=== PATIENT | female | born 1980 | race Caucasian/White ===

== ENCOUNTER → 2017-09-15 | Outpatient (CLI) | payer OTHER ==
[2017-09-15 08:53] LABS: PROGESTERONE 0.2 NG/ML
[2017-09-15 08:53] LABS: LUTEINIZING HORMONE 8.6 mIU/mL
[2017-09-15 08:54] LABS: ESTRADIOL 104.3 PG/ML
== END ==
LOC: M LAB 07:40
DX: N97.9 Female infertility, unspecified (principal)

== ENCOUNTER → 2017-09-15 | Outpatient (CLI) | payer OTHER | LOC: M RAD 16:22 | DX: N97.9 Female infertility, unspecified (principal) ==

== ENCOUNTER → 2017-09-17 | Outpatient (CLI) | payer OTHER ==
[2017-09-17 10:00] LABS: PROGESTERONE 0.3 NG/ML
[2017-09-17 10:01] LABS: ESTRADIOL 211.4 PG/ML; LUTEINIZING HORMONE 9.7 mIU/mL
== END ==
LOC: M RAD 07:04
DX: N97.9 Female infertility, unspecified (principal)

== ENCOUNTER → 2017-09-27 | Outpatient (CLI) | payer OTHER ==
[2017-09-27 11:05] LABS: PROGESTERONE 23.6 NG/ML
[2017-09-27 11:07] LABS: ESTRADIOL 137.6 PG/ML
== END ==
LOC: M LAB 07:33
DX: N97.9 Female infertility, unspecified (principal)

== ENCOUNTER → 2017-10-04 | Outpatient (CLI) | payer OTHER ==
[2017-10-04 09:24] LABS: HCG, SERUM QUANTITATIVE < 1.0 MIU/ML
== END ==
LOC: M LAB 08:32
DX: Z32.00 Encounter for pregnancy test, result unknown (principal)
CPT/HCPCS: 84702

== ENCOUNTER 2017-11-28 23:54 | Inpatient (IN) | payer OTHER ==
[2017-11-29] MEDS: NS 1,000 ML IV ×2 (00:15→01:45)
[2017-11-29] MEDS: ONDANSETRON 4MG/2ML VIAL (J2405) IV ×4 (00:15→14:18)
[2017-11-29 00:57] LABS: BASO % 0.3 % (0.0-1.0); EOS # 0.1 10^3/uL (0.0-0.50); EOS % 0.8 % (0.0-3.0); HEMATOCRIT 37.6 % (36.0-47.0); HEMOGLOBIN 13.1 g/dl (12.0-15.5); IMMATURE GRANULOCYTE % 0.3 % (0-3.0); LYMPH # 0.7 10^3/uL (1.5-4.5); MEAN CORPUSCULAR HEMOGLOBIN 30.2 pg (27.0-33.0); MEAN CORPUSCULAR HGB CONC 34.8 g/dl (32.0-36.5); MEAN CORPUSCULAR VOLUME 86.6 fl (80.0-96.0); MONO # 0.7 10^3/uL (0.0-0.8); MONO % 5.9 % (0.0-5.0); NEUTROPHILS # 9.6 10^3/uL (1.8-7.7); NEUTROPHILS % 86.7 % (36.0-66.0); PLATELET COUNT, AUTOMATED 297 10^3/uL (150-450); RED BLOOD COUNT 4.34 10^6/uL (4.00-5.40); RED CELL DISTRIBUTION WIDTH 12.4 % (11.5-14.5); WHITE BLOOD COUNT 11.1 10^3/uL (4.0-10.0)
[2017-11-29 01:04] LABS: ALBUMIN 3.4 GM/DL (3.2-5.2); ALBUMIN/GLOBULIN RATIO 0.97 (1.00-1.93); ALKALINE PHOSPHATASE 47 U/L (45-117); ALT/SGPT 41 U/L (12-78); ANION GAP 10 MEQ/L (8-16); AST/SGOT 22 U/L (7-37); BILIRUBIN,DIRECT 0.1 MG/DL (0.0-0.2); BILIRUBIN,TOTAL 0.3 MG/DL (0.2-1.0); BLOOD UREA NITROGEN 10 MG/DL (7-18); CALCIUM LEVEL 8.7 MG/DL (8.5-10.1); CARBON DIOXIDE LEVEL 24 MEQ/L (21-32); CHLORIDE LEVEL 104 MEQ/L (98-107); CREATININE FOR GFR 0.66 MG/DL (0.55-1.30); GLOMERULAR FILTRATION RATE > 60.0 (>60); GLUCOSE, FASTING 98 MG/DL (70-100); HCG, SERUM QUANTITATIVE 111019 MIU/ML; LIPASE 927 U/L (73-393); POTASSIUM SERUM 3.7 MEQ/L (3.5-5.1); SODIUM LEVEL 138 MEQ/L (136-145); TOTAL PROTEIN 6.9 GM/DL (6.4-8.2)
[2017-11-29] MEDS: LR 1,000 ML IV (02:39)
[2017-11-29 07:01] LABS: HEMATOCRIT 33.2 % (36.0-47.0); HEMOGLOBIN 11.5 g/dl (12.0-15.5); MEAN CORPUSCULAR HEMOGLOBIN 30.2 pg (27.0-33.0); MEAN CORPUSCULAR HGB CONC 34.6 g/dl (32.0-36.5); MEAN CORPUSCULAR VOLUME 87.1 fl (80.0-96.0); PLATELET COUNT, AUTOMATED 219 10^3/uL (150-450); RED BLOOD COUNT 3.81 10^6/uL (4.00-5.40); RED CELL DISTRIBUTION WIDTH 12.5 % (11.5-14.5)
[2017-11-29 07:26] LABS: AMYLASE 86 U/L (25-115)
[2017-11-29 07:26] LABS: LIPASE 245 U/L (73-393)
[2017-11-29 07:33] LABS: ALBUMIN 2.8 GM/DL (3.2-5.2); ALBUMIN/GLOBULIN RATIO 0.88 (1.00-1.93); ALKALINE PHOSPHATASE 40 U/L (45-117); ALT/SGPT 33 U/L (12-78); ANION GAP 8 MEQ/L (8-16); AST/SGOT 17 U/L (7-37); BILIRUBIN,TOTAL 0.3 MG/DL (0.2-1.0); BLOOD UREA NITROGEN 10 MG/DL (7-18); CALCIUM LEVEL 7.5 MG/DL (8.5-10.1); CARBON DIOXIDE LEVEL 22 MEQ/L (21-32); CHLORIDE LEVEL 109 MEQ/L (98-107); CREATININE FOR GFR 0.58 MG/DL (0.55-1.30); GLOMERULAR FILTRATION RATE > 60.0 (>60); GLUCOSE, FASTING 97 MG/DL (70-100); POTASSIUM SERUM 3.3 MEQ/L (3.5-5.1); SODIUM LEVEL 139 MEQ/L (136-145)
[2017-11-29] MEDS: KCL 20MEQ IN D5/0.45NS 1000ML 1,000 ML IV (10:56)
== END 2017-11-29 18:45 | disposition home or self-care (01) | DRG 566 ==
LOC: M ED 23:54 → M PED 11-29 02:39 → M ED INP 11-29 02:39 → M PED 11-29 03:30
DX: O21.8 Other vomiting complicating pregnancy (principal); K85.90 Acute pancreatitis without necrosis or infection, unspecified; O34.211 Maternal care for low transverse scar from previous cesarean delivery; O99.611 Diseases of the digestive system complicating pregnancy, first trimester; Z3A.08 8 weeks gestation of pregnancy

== ENCOUNTER → 2017-12-14 | Outpatient (CLI) | payer OTHER | LOC: M LAB 13:12 | DX: O09.521 Supervision of elderly multigravida, first trimester (principal) ==

== ENCOUNTER → 2017-12-14 | Outpatient (CLI) | payer OTHER ==
[2017-12-14 18:31] LABS: BASO % 0.3 % (0.0-1.0); EOS % 0.6 % (0.0-3.0); HEMATOCRIT 36.3 % (36.0-47.0); HEMOGLOBIN 12.5 g/dl (12.0-15.5); IMMATURE GRANULOCYTE % 0.1 % (0-3.0); LYMPH # 1.6 10^3/uL (1.5-4.5); LYMPH % 23.2 % (24.0-44.0); MEAN CORPUSCULAR HGB CONC 34.4 g/dl (32.0-36.5); MEAN CORPUSCULAR VOLUME 87.3 fl (80.0-96.0); MONO # 0.7 10^3/uL (0.0-0.8); MONO % 9.7 % (0.0-5.0); NEUTROPHILS # 4.7 10^3/uL (1.8-7.7); NEUTROPHILS % 66.1 % (36.0-66.0); PLATELET COUNT, AUTOMATED 306 10^3/uL (150-450); RED BLOOD COUNT 4.16 10^6/uL (4.00-5.40); RED CELL DISTRIBUTION WIDTH 12.3 % (11.5-14.5)
[2017-12-14 20:09] LABS: CHLAMYDIA DNA AMPLIFICATION NEGATIVE (NEGATIVE); GC DNA AMPLIFICATION NEGATIVE (NEGATIVE)
[2017-12-15 09:33] LABS: RUBELLA IgG QUALITATIVE IMMUNE (IMMUNE)
[2017-12-15 09:42] LABS: HBsAg Prenatal NEGATIVE (NEGATIVE)
[2017-12-15 10:03] LABS: HIV 1&2 SCREEN CENTAUR NEGATIVE (NEGATIVE)
== END ==
LOC: M SMT 15:16
DX: Z34.81 Encounter for supervision of other normal pregnancy, first trimester (principal); Z3A.10 10 weeks gestation of pregnancy
CPT/HCPCS: 86762

== ENCOUNTER → 2018-03-29 | Outpatient (CLI) | payer OTHER ==
[2018-03-29 13:01] LABS: HEMATOCRIT 33.2 % (36.0-47.0); HEMOGLOBIN 11.4 g/dl (12.0-15.5); MEAN CORPUSCULAR HEMOGLOBIN 30.9 pg (27.0-33.0); MEAN CORPUSCULAR HGB CONC 34.3 g/dl (32.0-36.5); PLATELET COUNT, AUTOMATED 294 10^3/uL (150-450); RED BLOOD COUNT 3.69 10^6/uL (4.00-5.40); RED CELL DISTRIBUTION WIDTH 12.9 % (11.5-14.5); WHITE BLOOD COUNT 7.9 10^3/uL (4.0-10.0)
[2018-03-29 13:32] LABS: GLUCOSE CHALLENGE TEST 1 HOUR 132 MG/DL (LESS THAN 140)
== END ==
LOC: M SMT 09:27
DX: Z34.82 Encounter for supervision of other normal pregnancy, second trimester (principal)

== ENCOUNTER → 2018-06-09 | Outpatient (REF) | payer OTHER | LOC: M LAB REF 17:16 | DX: Z34.83 Encounter for supervision of other normal pregnancy, third trimester (principal); Z36.85 Encounter for antenatal screening for Streptococcus B ==

== ENCOUNTER 2018-07-01 16:45 | Outpatient (CLI) | payer OTHER | END 2018-07-01 17:33 | disposition home or self-care (01) | LOC: M LDO 16:45 | DX: O36.8130 Decreased fetal movements, third trimester, not applicable or unspecified (principal); O47.1 False labor at or after 37 completed weeks of gestation; Z3A.38 38 weeks gestation of pregnancy | CPT/HCPCS: 59025 ==

== ENCOUNTER 2018-07-04 05:36 | Inpatient (IN) | payer OTHER ==
[2018-07-04] MEDS: LR 800 ML IV (06:00)
[2018-07-04 06:37] LABS: MEAN CORPUSCULAR HEMOGLOBIN 28.5 pg (27.0-33.0); MEAN CORPUSCULAR HGB CONC 32.4 g/dl (32.0-36.5); MEAN CORPUSCULAR VOLUME 87.9 fl (80.0-96.0); PLATELET COUNT, AUTOMATED 363 10^3/uL (150-450); RED BLOOD COUNT 4.21 10^6/uL (4.00-5.40); RED CELL DISTRIBUTION WIDTH 13.9 % (11.5-14.5); WHITE BLOOD COUNT 10.6 10^3/uL (4.0-10.0)
[2018-07-04] MEDS ORDERED: LR 1,000 ML IV (07:00)
[2018-07-04] MEDS ORDERED: KETOROLAC 60 MG/2 ML VIAL (J1885) As Ordered (07:21)
[2018-07-04] MEDS ORDERED: OXYTOCIN INJ 10 UNITS/ML VIAL (J2590) As Ordered (07:21)
[2018-07-04] MEDS ORDERED: ONDANSETRON 4MG/2ML VIAL (J2405) As Ordered (07:21)
[2018-07-04] MEDS ORDERED: dexameTHASONE 4 MG/ML 1ML VIAL (J1100) As Ordered (07:21)
[2018-07-04] MEDS: BICITRA 30ML SOLN UDC PO (07:23)
[2018-07-04] MEDS ORDERED: MORPHINE PRES-FREE INJ 10 MG/10 ML VIAL (J2274) As Ordered (07:24)
[2018-07-04] MEDS ORDERED: fentaNYL 100 MCG/2 ML INJECTION (J3010) As Ordered (07:24)
[2018-07-04] MEDS ORDERED: NALOXONE INJ 0.4 MG/1 ML VIAL (J2310) IV ×2 (07:33)
[2018-07-04] MEDS ORDERED: ONDANSETRON 4MG/2ML VIAL (J2405) IV ×3 (07:33→09:00)
[2018-07-04] MEDS ORDERED: NALBUPHINE HCL 10 MG/ML AMP (J2300) IV (07:33)
[2018-07-04] MEDS ORDERED: METOCLOPRAMIDE INJ 10MG/2ML VIAL (J2765) IV (07:33)
[2018-07-04] MEDS ORDERED: ePHEDrine SULFATE 25 MG/5 ML(5MG/ML) SYRINGE As Ordered (08:10)
[2018-07-04] MEDS ORDERED: PHENYLephrine HCL 500 MCG/5 ML (100MCG/ML) SYRINGE (J2370) As Ordered (08:10)
[2018-07-04] MEDS ORDERED: RHOGAM 300 MCG (1500 IU) INJ (J2790) IM (08:45)
[2018-07-04] MEDS ORDERED: MEASLES,MUMPS,RUBELLA VACCINE INJ (MMR-II) (90707) SC (08:45)
[2018-07-04] MEDS ORDERED: OXYTOCIN 30 UNITS IN 0.9% NaCl 500ML IV BAG (J2590) As Ordered (08:59)
[2018-07-04] MEDS: LR 1,000 ML IV ×2 (09:00→10:45)
[2018-07-04] MEDS ORDERED: PERCOCET 5MG/325MG TAB PO (09:00)
[2018-07-04] MEDS ORDERED: fentaNYL 100 MCG/2 ML INJECTION (J3010) IV (09:00)
[2018-07-04] MEDS: OXYTOCIN DRIP 30 UNITS in APPROPRIATE DILUENT 1 EA IV (09:02)
[2018-07-04] MEDS: PRENATAL VITAMINS CHEWABLE TABLET PO (10:42)
[2018-07-04 10:54] LABS: HBSAG L&D NEGATIVE (NEGATIVE)
[2018-07-04] MEDS: KETOROLAC 30 MG/ML VIAL (J1885) IV ×2 (14:40→21:00)
[2018-07-05] MEDS: KETOROLAC 30 MG/ML VIAL (J1885) IV (02:43)
[2018-07-05 07:06] LABS: HEMOGLOBIN 11.3 g/dl (12.0-15.5); MEAN CORPUSCULAR HEMOGLOBIN 28.9 pg (27.0-33.0); MEAN CORPUSCULAR HGB CONC 33.2 g/dl (32.0-36.5); PLATELET COUNT, AUTOMATED 351 10^3/uL (150-450); RED BLOOD COUNT 3.91 10^6/uL (4.00-5.40); WHITE BLOOD COUNT 15.8 10^3/uL (4.0-10.0)
[2018-07-05] MEDS: PRENATAL VITAMINS CHEWABLE TABLET PO (09:21)
[2018-07-05] MEDS: IBUPROFEN 800 MG TAB PO ×2 (09:22→18:17)
[2018-07-05] MEDS: PERCOCET 5MG/325MG TAB PO ×3 (12:37→20:43)
[2018-07-05] MEDS: DOCUSATE SODIUM 100 MG CAP PO (20:43)
[2018-07-06] MEDS: IBUPROFEN 800 MG TAB PO ×2 (02:16→09:50)
[2018-07-06] MEDS: PERCOCET 5MG/325MG TAB PO ×2 (05:14→10:54)
[2018-07-06] MEDS: PRENATAL VITAMINS CHEWABLE TABLET PO (09:50)
== END 2018-07-06 12:20 | disposition home or self-care (01) | DRG 540 ==
LOC: M LDI 05:36 → M OBS 10:05
PROVIDERS: Specialist
PROC: 10D00Z1 Extraction of Products of Conception, Low, Open Approach (ICD-10-PCS; principal; 2018-07-04 07:26)
DX: O34.211 Maternal care for low transverse scar from previous cesarean delivery (principal); Z37.0 Single live birth; Z3A.39 39 weeks gestation of pregnancy

== ENCOUNTER → 2018-10-05 | Outpatient (REF) | payer BC ==
[~2018-10-05] MED LIST: BENA25CA4 PO; IBUP-1114 PO; METO10TA2 PO; OXYC1TAB23 PO; PREN1TAB26 PO; RANI15TA PO; TYLE325T5 PO; TYLE500T78 PO; VALA500T5 PO; ZOFR4TAB14 PO
[2018-10-08 14:38] LABS: HPV LOW VOL RFLX Negative (Negative)
== END ==
LOC: M LAB REF 17:26
PROVIDERS: ATTEND Specialist
DX: Z12.4 Encounter for screening for malignant neoplasm of cervix (principal); Z11.51 Encounter for screening for human papillomavirus (HPV)
CPT/HCPCS: 87624; G0123

== ENCOUNTER 2018-12-27 16:48 | Emergency (ER) | payer OTHER, BC ==
[~2018-12-27] VITALS: Ht 180.3 cm; Wt 75.0 kg
[2018-12-27 16:48] VITALS: BP 119/88
[2018-12-27] MEDS ORDERED: EXPOSURE KIT-ADULT 7 DAY SUPPLY PO ONE (17:15)
[2018-12-27] MEDS ORDERED: RALT40TA PO (17:17)
[2018-12-27] MEDS ORDERED: TRUVTAB PO (17:17)
[2018-12-27 17:20] LABS: BASO % 0.3 % (0.0-1.0); EOS % 0.3 % (0.0-3.0); HEMATOCRIT 39.8 % (36.0-47.0); HEMOGLOBIN 13.3 g/dl (12.0-15.5); LYMPH # 1.5 10^3/uL (1.5-4.5); MEAN CORPUSCULAR HGB CONC 33.4 g/dl (32.0-36.5); MEAN CORPUSCULAR VOLUME 89.8 fl (80.0-96.0); MONO # 0.5 10^3/uL (0.0-0.8); MONO % 9.1 % (0.0-5.0); NEUTROPHILS # 3.8 10^3/uL (1.8-7.7); NEUTROPHILS % 65.1 % (36.0-66.0); PLATELET COUNT, AUTOMATED 300 10^3/uL (150-450); RED BLOOD COUNT 4.43 10^6/uL (4.00-5.40); WHITE BLOOD COUNT 5.9 10^3/uL (4.0-10.0)
[2018-12-27 17:46] LABS: ALBUMIN 3.9 GM/DL (3.2-5.2); ALT/SGPT 23 U/L (12-78); BILIRUBIN,TOTAL 0.3 MG/DL (0.2-1.0); BLOOD UREA NITROGEN 15 MG/DL (7-18); CALCIUM LEVEL 8.8 MG/DL (8.5-10.1); CARBON DIOXIDE LEVEL 25 MEQ/L (21-32); CHLORIDE LEVEL 104 MEQ/L (98-107); CREATININE FOR GFR 0.97 MG/DL (0.55-1.30); GLOMERULAR FILTRATION RATE > 60.0 (>60); GLUCOSE, FASTING 82 MG/DL (70-100); SODIUM LEVEL 138 MEQ/L (136-145); TOTAL PROTEIN 7.4 GM/DL (6.4-8.2)
[2018-12-27 17:54] LABS: HIVEXPOSED0 NEGATIVE (NEGATIVE)
[2018-12-27 20:40] LABS: HCG, SERUM QUALITATIVE NEGATIVE (NEGATIVE)
[2018-12-28 09:32] LABS: HEPATITIS B SURFACE ANTIBODY POSITIVE (POSITIVE)
[2018-12-28 09:43] LABS: HEPATITIS B SURFACE ANTIGEN NEGATIVE (NEGATIVE)
[2018-12-28 10:12] LABS: HEPATITIS C VIRUS ABY INDEX 0.1 INDEX (<0.8)
== END 2018-12-27 17:47 | disposition home or self-care (01) ==
LOC: M ED 16:48
DX: Z77.21 Contact with and (suspected) exposure to potentially hazardous body fluids (principal); S61.235A Puncture wound without foreign body of left ring finger without damage to nail, initial encounter; W46.0XXA Contact with hypodermic needle, initial encounter; Y92.89 Other specified places as the place of occurrence of the external cause

== ENCOUNTER 2020-01-20 14:52 | Emergency (ER) | payer BC, OTHER ==
[~2020-01-20] VITALS: Ht 170.2 cm; Wt 79.1 kg
[~2020-01-20 14:52] MED LIST changes: +RALT40TA PO; +TRUVTAB PO
[2020-01-20 14:59] VITALS: BP 119/81
[2020-01-20] MEDS ORDERED: MIRE1IUD IU (15:00)
[2020-01-20] MEDS ORDERED: TRUVTAB PO (15:12)
[2020-01-20] MEDS ORDERED: RALT40TA PO (15:12)
[2020-01-20] MEDS ORDERED: EXPOSURE KIT-ADULT 7 DAY SUPPLY PO ONE (15:15)
[2020-01-20 15:25] LABS: BASO % 0.3 % (0.0-1.0); HEMATOCRIT 41.4 % (36.0-47.0); LYMPH # 1.3 10^3/uL (1.5-5.0); LYMPH % 19.4 % (24.0-44.0); MEAN CORPUSCULAR HGB CONC 33.8 g/dl (32.0-36.5); MEAN CORPUSCULAR VOLUME 91.6 fl (80.0-96.0); MONO # 0.5 10^3/uL (0.0-0.8); MONO % 6.8 % (0.0-5.0); NEUTROPHILS # 4.9 10^3/uL (1.5-8.5); NEUTROPHILS % 73.2 % (36.0-66.0); PLATELET COUNT, AUTOMATED 292 10^3/uL (150-450); RED BLOOD COUNT 4.52 10^6/uL (4.00-5.40); WHITE BLOOD COUNT 6.8 10^3/uL (4.0-10.0)
[2020-01-20] MEDS ORDERED: RALTEGRAVIR 400 MG TAB (ISENTRESS) PO ONE (15:30)
[2020-01-20] MEDS ORDERED: TRUVADA 200MG/300MG TABLET PO ONE (15:30)
[2020-01-20 15:46] LABS: ALBUMIN 4.2 GM/DL (3.2-5.2); ALT/SGPT 18 U/L (12-78); BILIRUBIN,TOTAL 0.3 MG/DL (0.2-1.0); BLOOD UREA NITROGEN 12 MG/DL (7-18); CALCIUM LEVEL 9.4 MG/DL (8.5-10.1); CARBON DIOXIDE LEVEL 23 MEQ/L (21-32); CHLORIDE LEVEL 106 MEQ/L (98-107); CREATININE FOR GFR 0.91 MG/DL (0.55-1.30); GLOMERULAR FILTRATION RATE > 60.0 (>60); GLUCOSE, FASTING 90 MG/DL (70-100); SODIUM LEVEL 139 MEQ/L (136-145); TOTAL PROTEIN 7.8 GM/DL (6.4-8.2)
[2020-01-21] MEDS ORDERED: TRUVADA 200MG/300MG TABLET PO SCH
[2020-01-21] MEDS ORDERED: RALTEGRAVIR 400 MG TAB (ISENTRESS) PO SCH
[2020-01-21 17:14] LABS: HCG, SERUM QUALITATIVE NEGATIVE (NEGATIVE)
[2020-01-22 11:13] LABS: HEPATITIS B SURFACE ANTIBODY POSITIVE (POSITIVE)
[2020-01-22 11:23] LABS: HEPATITIS B SURFACE ANTIGEN NEGATIVE (NEGATIVE)
[2020-01-22 11:52] LABS: HEPATITIS C VIRUS ABY INDEX 0.2 INDEX (<0.8); HIV SCREEN CENTAUR EXPOSED NEGATIVE (NEGATIVE)
== END 2020-01-20 15:32 | disposition home or self-care (01) ==
LOC: M ED 14:52
DX: Z57.9 Occupational exposure to unspecified risk factor (principal); Z79.3 Long term (current) use of hormonal contraceptives

== ENCOUNTER → 2020-06-25 | Outpatient (CLI) | payer SELFPAY ==
[~2020-06-25] MED LIST changes: +MIRE1IUD IU
== END ==
LOC: M LABSMTC 12:36
PROVIDERS: ATTEND Pediatrics
DX: Z20.828 Contact with and (suspected) exposure to other viral communicable diseases (principal)